=== PATIENT | female | born 1970 | race Caucasian/White ===

== ENCOUNTER → 2017-04-23 13:02 | Outpatient (CLI) | payer OTHER, SELFPAY ==
--- NOTE | 2017-04-23 13:13 | MM_ITS ---
MM Dig mamm DX unilat LT CAD, US breast RT complete, US breast LT complete ------ DIAGNOSTIC LEFT MAMMOGRAM WITH SPOT VIEWS BILATERAL BREAST ULTRASOUND INCLUDING AXILLA SURVEY ORDERING PHYSICIAN : Magalie Vickers PATIENT AGE: 46 years GENDER: Female COMPARISON: Previous mammograms: October 2016 bilateral mammogram, also March 2015, October 2013, November 2011 INDICATION: Asymmetric density noted on recent screening TECHNIQUE: Standard CC & MLO images were obtained. Axillary cc, rule cc and 90 degree view performed left breast. FINDINGS: Dense breast pattern, decreases the sensitivity of mammography. LEFT BREAST:The area of density at deep medial left breast is again seen but becomes less evident on additional views today. Medial Rolled cc views suggested this density dissipate and most likely asymmetric area of glandular tissue similar to studies dating back to 2014. It can be followed. On the MLO view there is a area of density at the central breast which dissipates on the subsequent 90 degrees ML view and thus most likely summation shadow with no history density at central left. The contour left breast is again noted on the MLO view & stable as well. However given the dense character of the breast and moderate inhomogeneous planar pattern bilaterally ultrasound be performed to further evaluate since it is a useful compliment to mammography in dense this dense character BILATERAL BREAST ULTRASOUND including axillary survey LEFT BREAST ULTRASOUND.: Entire left breast was surveyed along survey of the axilla. Dense breast tissue seen throughout with no focal areas of concern. No no cyst nor mass lesion. Survey of axillary region demonstrates scattered benign-appearing axillary lymph nodes. RIGHT BREAST ULTRASOUND.: Entire right breast was surveyed along survey of the axilla. Dense breast tissue seen throughout with no focal areas of concern. No no cyst nor mass lesion. Survey of axillary region demonstrates scattered benign-appearing axillary lymph nodes. IMPRESSION: 1. Dense breast bilaterally decreased sensitivity mammography, but today's additional views left breast; along with bilateral breast ultrasound showed no focal area of concern. No significant overall change since prior studies. Area of density deep medial left breast stable since 2014, & can be followed 2. patient may resume annual scheduled BI-RADS Category: 2 Benign Finding(s) RECOMMENDED FOLLOW-UP: 6M - 6 MONTH FOLLOW-UP to resume annual schedule (A letter has been sent to the patient regarding results of the study.) .
== END ==
PROVIDERS: Family Provider Family Medicine; PCP Family Medicine; Visit Provider Obstetrics & Gynecology Gynecology
DX: R92.8 Other abnormal and inconclusive findings on diagnostic imaging of breast (principal)
CPT/HCPCS: 19083; 76641; 77065

== ENCOUNTER → 2020-09-17 07:45 | Outpatient (CLI) | payer BC, SELFPAY ==
[2020-09-17 09:17] LABS: HCG Qualitative, Serum Negative (Negative)
== END ==
PROVIDERS: Visit Provider Internal Medicine Gastroenterology
DX: Z11.52 Encounter for screening for COVID-19 (principal); U07.1 COVID-19
CPT/HCPCS: 36415; 84703; U0003

== ENCOUNTER 2020-09-20 12:21 | Day surgery (SDC) | payer BC, SELFPAY ==
[2020-09-14 12:20] VITALS: BMI 31.7
[2020-09-20 09:17] LABS: Coronavirus 19 IgG Antibody Positive (Negative); Coronavirus 19 IgM Antibody Negative (Negative)
--- NOTE | 2020-09-20 12:31 | P.PN_ITS ---
[facility] Anesthesia Checklist - Patient Identification Patient Identification: Arm Band - Structural Data Admitted From: Home Planned Operative Procedure/s: Colonoscopy Consent for Planned Operative Procedure(s) Verified: Yes - NPO Status Verified Time NPO: 00:00 - Airway Assessment C-Spine Mobility Assessed: Yes TMJ Mobility Assessed: Yes - Neurological Assessment Level of Consciousness: Awake Hx Seizures: No Numbness or tingling in extremities: No - Anesthesia Plan Anesthesia Risk discussed: Yes Anesthesia Plan: Verified ASA Class: II Anesthesia Type: MAC [facility] History I have reviewed the patient's past medical history: Yes Medical History: Denies:: Cancer, Diabetes Mellitus Type 2, MRSA *Have you ever received a pneumonia vaccine?: No *Have you received a flu vaccine this season?: No Anesthesia experience/problems:: None Laterality Cases: Bilateral: Tonsillectomy Amputation: No Fractures: No - *Social History Last grade of school completed: High school graduate Smoking Status: Never smoker Alcohol Intake: current Alcohol Intake Frequency:: holidays/special occasions only Substance Use Type: denies use *Occupational Status:: employed *Travel in the last 8 weeks: None Family Hx:: Unable to obtain
[2020-09-20 12:40] VITALS: BP 138/84; PULSE 69; RESP 18; TEMP 36.6; O2SAT 100
--- NOTE | 2020-09-20 13:23 | P.PCN_ITS ---
[facility] Procedure Note Procedure Note:: Colonoscopy Procedure Report: Colonoscopy Endoscopist: William Copeland II, MD Referring physician: Magalie Vickers MD/Geena Ortiz DO Date of Procedure: September 20, 2020 Equipment: Olympus 190 variable stiffness pediatric colonoscope Sedation: MAC sedation Indication: Mrs. Howe is a 50-year-old female who is here for initial screening colonoscopy. She reports no abdominal pain, weight loss or change in her bowel habits. She does state that her first cousin had colon cancer at the age of 44. She does get some hemorrhoidal bleeding on the toilet tissue and bowl. Procedure: Prior to the procedure, a history and physical exam was performed, and patient's medications and allergies were reviewed. The risks, benefits and alternatives of the sedation and procedure were discussed with the patient. All questions were answered and informed consent was obtained. The patient was brought to the procedure room. Patient identification and proposed procedure were verified by the physician and the nurse. The patient was placed in a left lateral decubitus position and the scope was passed under direct vision. Throughout the procedure, the patient's blood pressure, pulse, and oxygen saturations were monitored continuously. The colonoscopy was accomplished without difficulty. The patient tolerated the procedure well. Findings: On digital rectal examination there was normal rectal tone. There were external tags but no external hemorrhoids. The colonoscope was introduced through the anal canal to the rectum and advanced to the cecum. The ileocecal valve and appendiceal orifice were identified. The scope was advanced a short distance into the ileum which appeared grossly normal. The scope was then withdrawn into the colon. The cecum, ascending, transverse, descending, sigmoid and rectum were grossly normal. There were no mucosal abnormalities identified. Upon retroflexion within the rectum there were grade 1-2 internal hemorrhoids.The preparation was excellent throughout with Aurora Preparation Score of 9. The cecal time was 10 minutes. Impression: 1. Normal colonoscopy with intubation of the terminal ileum 2. Grade 1-2 internal hemorrhoids Plan: The patient will not require screening/surveillance colonoscopy again for 10 years by ACS guidelines. I would encourage bulking fiber supplementation on a long-term daily maintenance basis.
[2020-09-20 13:24] VITALS: BP 107/73; PULSE 77; RESP 18; TEMP 36.4; O2SAT 96
[2020-09-20 13:34] VITALS: BP 112/70; PULSE 74; RESP 18; O2SAT 97
[2020-09-20 13:44] VITALS: BP 115/69; PULSE 66; RESP 18; O2SAT 99
[2020-09-20 13:51] VITALS: BP 117/75; PULSE 65; RESP 18; O2SAT 100
[2020-09-20 14:28] VITALS: O2SAT 98
== END 2020-09-20 13:54 | disposition home or self-care (01) ==
LOC: OUTP 12:25
PROVIDERS: PCP Family Medicine; Visit Provider Internal Medicine Gastroenterology
PROC: 0DJD8ZZ Inspection of Lower Intestinal Tract, Via Natural or Artificial Opening Endoscopic (ICD-10-PCS; CPT 45378; principal; 2020-09-20 13:30)
DX: Z12.11 Encounter for screening for malignant neoplasm of colon (principal); K64.0 First degree hemorrhoids
CPT/HCPCS: 45378; 86328